=== PATIENT | male | born 1940 | race Caucasian/White ===

== ENCOUNTER → 2020-10-05 | Outpatient (CLI) | payer OTHER | LOC: LAB EV 16:20 → LAB SHORT 16:20 | DX: N39.0 Urinary tract infection, site not specified (principal) | CPT/HCPCS: 87077; 87086; 87186 ==

== ENCOUNTER 2023-03-19 18:42 | Emergency (ER) | payer OTHER ==
[~2023-03-19] VITALS: Ht 175.3 cm; Wt 70.3 kg
[2023-03-19 19:02] LABS: Hemoglobin 14.7 g/dL (13.5-17.5); Mean Corpuscular HGB 29.9 pg (26.0-34.0); Mean Corpuscular HGB Conc 34.2 g/dL (31.5-36.5); Mean Corpuscular Volume 87 fL (80-100); Mean Platelet Volume 10.8 fL (9.1-12.4); NRBC ABSOLUTE 0.02 K/mm3 (0.00-0.02); NRBC Auto 0.1 /100 WBC (0.0-0.2); Platelet Count 159 K/mm3 (150-400); RDW Standard Deviation 40.9 fL (35.1-46.3); Red Blood Cell Count 4.92 M/mm3 (4.30-5.90); White Blood Cell Count 15.61 K/mm3 (4.00-11.30)
[2023-03-19 19:23] LABS: Albumin, Blood 3.7 g/dL (3.4-5.0); Albumin/Globulin Ratio 1.2 (0.8-1.8); Bilirubin, Total 0.7 mg/dL (0.1-1.0); Bun/Creatinine Ratio 20.4 (12.0-20.0); Calcium, Blood 9.8 mg/dL (8.5-10.1); Creatinine, Blood 0.64 mg/dL (0.60-1.20); Globulin, Blood 3.2 g/dL (2.2-4.0); Potassium, Blood 4.4 mmol/L (3.5-5.5); Total Protein, Blood 6.9 g/dL (6.4-8.2)
[2023-03-19 19:51] LABS: BASOPHILS PERCENT MAN 0 % (0-2); EOSINOPHILS PERCENT MAN 0 % (0-6); LYMPHOCYTES ABSOLUTE MAN 12.48 K/mm3 (0.84-5.20); LYMPHOCYTES PERCENT MAN 80 % (21-46); MONOCYTES PERCENT MAN 0 % (4-13); NEUTROPHILS ABSOLUTE MAN 3.12 K/mm3 (1.96-9.15); SEG NEUTROPHILS PERCENT MAN 20 % (41-73); TOTAL CELLS COUNTED 100
[2023-03-19 20:30] LABS: Base Excess Venous 6.1 mmol/L; Bicarbonate Venous 28.4 mmol/L (24.0-30.0); PCO2 Venous 51.2 mmHg (38-42); pH Blood Venous 7.39 (7.34-7.37)
[2023-03-19 20:52] LABS: Source, Urine Clean Catch
[2023-03-19 20:55] LABS: Bilirubin, Urine Neg (Neg); Blood, Urine 1+ (Neg); Glucose Qualitative, Urine 4+ (Neg); Ketones, Urine 1+ (Neg); Leukocyte Esterase, Urine Neg (Neg); Nitrite, Urine Neg (Neg); Protein, Urine Neg (Neg); Urobilinogen, Urine NORM (Normal)
[2023-03-19 20:56] LABS: Appearance, Urine Clear (Clear); Color, Urine Yellow (P-Yellow)
[2023-03-19 21:05] LABS: Bacteria Not Seen /hpf; Red Blood Cells, Urine 0-2 /hpf (0-2); Squamous Epithelial Cells Rare /hpf (Few); White Blood Cells, Urine Not Seen /hpf (0-5)
[2023-03-19 22:00] VITALS: BP 123/97
[2023-03-19] MEDS ORDERED: METF500C PO (22:25)
[2023-03-20] MEDS ORDERED: METF500C PO (01:13)
[2023-03-20] MEDS ORDERED: LEVO750 PO (01:13)
[2023-03-20] MEDS ORDERED: GLIM2 PO (23:08)
[2023-03-20] MEDS ORDERED: TAMS.4ER PO (23:08)
== END 2023-03-19 22:37 | disposition home or self-care (01) ==
LOC: ER 18:42
PROVIDERS: Emergency Medicine; Student in an Organized Health Care Education/Training Program
DX: E11.65 Type 2 diabetes mellitus with hyperglycemia (principal); R06.89 Other abnormalities of breathing; Z88.0 Allergy status to penicillin; Z88.1 Allergy status to other antibiotic agents
CPT/HCPCS: 71046; 80053; 81001; 82803; 82947; 84443; 85025; 93005; 93010; 96360; 99285-25; J1815; J7030

== ENCOUNTER 2023-03-20 18:58 | Inpatient (IN) | payer OTHER ==
[~2023-03-20] VITALS: Ht 175.3 cm; Wt 70.3 kg
[~2023-03-20 18:58] MED LIST: LEVO750 PO; METF500C PO
[2023-03-20 19:53] LABS: Hematocrit 41.5 % (37.0-53.0); Mean Corpuscular HGB 30.1 pg (26.0-34.0); Mean Corpuscular HGB Conc 33.7 g/dL (31.5-36.5); Mean Corpuscular Volume 89 fL (80-100); Mean Platelet Volume 10.7 fL (9.1-12.4); Platelet Count 155 K/mm3 (150-400); RDW Coefficient Variation 13.2 % (11.7-14.2); RDW Standard Deviation 42.4 fL (35.1-46.3); Red Blood Cell Count 4.65 M/mm3 (4.30-5.90); White Blood Cell Count 20.26 K/mm3 (4.00-11.30)
[2023-03-20 20:04] LABS: Alanine Aminotransfer (ALT/SGP 22 U/L (12-78); Albumin, Blood 3.4 g/dL (3.4-5.0); Albumin/Globulin Ratio 1.1 (0.8-1.8); Alk Phos 90 U/L (50-136); Anion Gap 9 mmol/L (6-16); Aspartate Aminotrans (AST/SGOT 14 U/L (12-37); Bilirubin, Total 0.7 mg/dL (0.1-1.0); Blood Urea Nitrogen 13 mg/dL (8-24); Bun/Creatinine Ratio 21.5 (12.0-20.0); CO2, Blood 26 mmol/L (21-32); Calcium, Blood 8.4 mg/dL (8.5-10.1); Chloride, Blood 102 mmol/L (98-108); Ethanol (Alcohol), Blood, Med <3 mg/dL; Globulin, Blood 3.2 g/dL (2.2-4.0); Glomerular Filtration Rate 97 (60-); Glucose, Blood 302 mg/dL (70-99); Potassium, Blood 4.3 mmol/L (3.5-5.5); Sodium, Blood 137 mmol/L (136-145); Total Protein, Blood 6.6 g/dL (6.4-8.2)
[2023-03-20 20:50] LABS: BAND PERCENT MAN 1 % (0-8); BASOPHILS PERCENT MAN 0 % (0-2); EOSINOPHILS PERCENT MAN 0 % (0-6); LYMPHOCYTES ABSOLUTE MAN 15.39 K/mm3 (0.84-5.20); LYMPHOCYTES PERCENT MAN 76 % (21-46); MONOCYTES PERCENT MAN 0 % (4-13); NEUTROPHILS ABSOLUTE MAN 4.86 K/mm3 (1.96-9.15); SEG NEUTROPHILS PERCENT MAN 23 % (41-73); TOTAL CELLS COUNTED 100
[2023-03-20 21:04] LABS: Base Excess Venous 2.6 mmol/L; Bicarbonate Venous 25.4 mmol/L (24.0-30.0); PCO2 Venous 45.9 mmHg (38-42); PO2 Venous 33.5 mmHg (38-42); pH Blood Venous 7.39 (7.34-7.37)
[2023-03-20 21:50] LABS: U Amphetamine Screen Not Detected; U Barbituate Screen Not Detected; U Benzodiazapine Screen Not Detected; U Buprenorphine Screen Not Detected; U Cannabinoids Screen Not Detected; U Cocaine Screen Not Detected; U Methadone Screen Not Detected; U Methamphetamine Screen Not Detected; U Opiates Screen Not Detected; U Oxycodone Screen Not Detected; U Phencyclidine Screen Not Detected; U Propoxyphene Screen Not Detected
[2023-03-20] MEDS ORDERED: TAMS.4ER PO (23:08)
[2023-03-20] MEDS ORDERED: GLIM2 PO (23:08)
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
--- NOTE | 2023-03-21 02:06 | NUR ---
HEAD CT DONE EARLIER, WAITING FOR RESULTS. GAS BEEN RSTING QUIETLY WITHOUT NOTED ACUTE DISTRESS. CALL LIGHT IN REACH
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
[2023-03-21 04:53] VITALS: BP 99/61
[2023-03-21 06:23] LABS: BASOPHILS ABSOLUTE AUTO 0.04 K/mm3 (0.00-0.23); BASOPHILS PERCENT AUTO 0 % (0-2); EOSINOPHILS ABSOLUTE AUTO 0.01 K/mm3 (0.00-0.68); EOSINOPHILS PERCENT AUTO 0 % (0-6); Hematocrit 38.5 % (37.0-53.0); Hemoglobin 12.9 g/dL (13.5-17.5); IMMATURE GRAN ABSOLUTE AUTO 0.05 K/mm3 (0.00-0.10); IMMATURE GRAN PERCENT AUTO 0 % (0-1); LYMPHOCYTES ABSOLUTE AUTO 13.34 K/mm3 (0.84-5.20); LYMPHOCYTES PERCENT AUTO 69 % (21-46); MONOCYTES ABSOLUTE AUTO 0.31 K/mm3 (0.16-1.47); MONOCYTES PERCENT AUTO 2 % (4-13); Mean Corpuscular HGB Conc 33.5 g/dL (31.5-36.5); Mean Corpuscular Volume 90 fL (80-100); Mean Platelet Volume 11.2 fL (9.1-12.4); NEUTROPHILS ABSOLUTE AUTO 5.63 K/mm3 (1.96-9.15); NEUTROPHILS PERCENT AUTO 29 % (41-73); NRBC ABSOLUTE 0.03 K/mm3 (0.00-0.02); NRBC Auto 0.2 /100 WBC (0.0-0.2); Platelet Count 153 K/mm3 (150-400); RDW Coefficient Variation 13.2 % (11.7-14.2); RDW Standard Deviation 42.6 fL (35.1-46.3); White Blood Cell Count 19.38 K/mm3 (4.00-11.30)
[2023-03-21 06:47] LABS: Calcium, Blood 8.2 mg/dL (8.5-10.1); Creatinine, Blood 0.65 mg/dL (0.60-1.20); Potassium, Blood 3.8 mmol/L (3.5-5.5)
[2023-03-21 08:10] VITALS: BP 102/65
[2023-03-21 16:27] VITALS: BP 115/82
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
[2023-03-21 19:34] VITALS: BP 108/72
--- NOTE | 2023-03-21 22:46 | NUR ---
PATIENT STATING "THERE ARE BLUE, GREEN AND ORANGE LIGHTS". "I NEED TO GET OUT OF HERE, I DON'T TRUST YOU GUYS." PATIENT ALSO STATED HE WAS GOING TO TAKE HIS OWN PILLS. RN CHECKED PATIENT BAG AND NO PILLS WERE FOUND. PATIENT WALKED AROUND THE ROOM LOOKING FOR THE SOURCE OF THE LIGHTS. PATIENT STATED HE WAS GOING TO GO TO SLEEP. BED ALARM IN PLACE.
[2023-03-22 02:31] VITALS: BP 129/75
[2023-03-22 04:52] LABS: Hematocrit 38.8 % (37.0-53.0); Mean Corpuscular HGB 29.6 pg (26.0-34.0); Mean Corpuscular HGB Conc 33.5 g/dL (31.5-36.5); Mean Corpuscular Volume 88 fL (80-100); NRBC ABSOLUTE 0.06 K/mm3 (0.00-0.02); NRBC Auto 0.3 /100 WBC (0.0-0.2); Platelet Count 138 K/mm3 (150-400); RDW Coefficient Variation 12.8 % (11.7-14.2); RDW Standard Deviation 41.6 fL (35.1-46.3); Red Blood Cell Count 4.39 M/mm3 (4.30-5.90); White Blood Cell Count 18.97 K/mm3 (4.00-11.30)
--- NOTE | 2023-03-22 06:57 | NUR ---
NOC SHIFT SUMMARY: PT ALERT X 4 AT BEGINNING OF SHIFT. PATIENT HAD AN EPISODE LAST NIGHT WITH INCREASED CONFUSION. NO FURTHER ISSUES. BED ALARM IN PLACE. VERY PLEASANT.
[2023-03-22 07:09] LABS: BASOPHILS PERCENT MAN 0 % (0-2); EOSINOPHILS PERCENT MAN 0 % (0-6); LYMPHOCYTES % ATYPICAL MANUAL 1 % (0-0); LYMPHOCYTES ABSOLUTE MAN 15.36 K/mm3 (0.84-5.20); LYMPHOCYTES PERCENT MAN 80 % (21-46); MONOCYTES PERCENT MAN 0 % (4-13); SEG NEUTROPHILS PERCENT MAN 19 % (41-73); TOTAL CELLS COUNTED 100
[2023-03-22 07:58] VITALS: BP 130/70
[2023-03-22 15:57] VITALS: BP 110/82
--- NOTE | 2023-03-22 19:43 | NUR ---
SHIFT SUMMARY PT A&OX2-3. PT REPORTS THAT HE KNOWS HE IS CONFUSED AND FORGETFUL. FAMILY AND FRIENDS ALSO REPORT THAT PT IS NORMALLY A&OX4 AND BASELINE. BG ELEVATED TODAY AND DR. PUENTES NOTIFIED. NO NEW ORDERS GIVEN. PT WORKED WITH PHYSCIAL THERAPY AND OT TODAY AND TOLERATED WELL. NO C/O PAIN. VSS. BED IN LOWEST POSITION AND CALL LIGHT IN REACH.
[2023-03-22 20:39] VITALS: BP 132/76
--- NOTE | 2023-03-23 04:52 | NUR ---
NOC SHIFT SUMMARY: ALERT TO SELF ONLY LAST NIGHT. NO C/O PAIN. BG 261 LAST NIGHT. A1C 12.3%.
[2023-03-23 04:59] LABS: Hematocrit 39.7 % (37.0-53.0); Hemoglobin 13.6 g/dL (13.5-17.5); Mean Corpuscular HGB Conc 34.3 g/dL (31.5-36.5); Mean Corpuscular Volume 88 fL (80-100); Mean Platelet Volume 10.5 fL (9.1-12.4); NRBC ABSOLUTE 0.04 K/mm3 (0.00-0.02); NRBC Auto 0.2 /100 WBC (0.0-0.2); Platelet Count 128 K/mm3 (150-400); RDW Coefficient Variation 12.9 % (11.7-14.2); RDW Standard Deviation 40.9 fL (35.1-46.3); Red Blood Cell Count 4.53 M/mm3 (4.30-5.90); White Blood Cell Count 18.94 K/mm3 (4.00-11.30)
[2023-03-23 06:02] LABS: Anion Gap 6 mmol/L (6-16); Blood Urea Nitrogen 13 mg/dL (8-24); Bun/Creatinine Ratio 19.4 (12.0-20.0); CO2, Blood 27 mmol/L (21-32); Calcium, Blood 8.2 mg/dL (8.5-10.1); Chloride, Blood 102 mmol/L (98-108); Creatinine, Blood 0.67 mg/dL (0.60-1.20); Glomerular Filtration Rate 94 (60-); Glucose, Blood 248 mg/dL (70-99); Phosphorus, Blood 2.2 mg/dL (2.5-4.9); Potassium, Blood 3.8 mmol/L (3.5-5.5); Sodium, Blood 135 mmol/L (136-145)
[2023-03-23 07:40] VITALS: BP 151/77
[2023-03-23 16:02] VITALS: BP 112/70
--- NOTE | 2023-03-23 19:16 | NUR ---
SHIFT SUMMARY PT ALERT ONLY TO SELF. PT APPEARED MORE CONFUSED TODAY. PT LOSES TAIN OF THOUGHT IN MIDDLE OF SENTANCE AND HAS TROUBLE AT TIMES FORMING A COMPLETE SENTANCE. THIS NURSE ATTMPTED TO REACH PT'S PCP, TODD SAMPSON, AT WITHOUT SUCCESS. A REQUEST FOR RELEASE OF MEDICAL RECORDS WAS FAXED TO [facility]. SPOKE WITH PT'S SON AND GAVE UPDATE. DR PUENTES REQUESTS MEDIAL RECORDS FROM SALES SUPPORT REP, IF POSSIBLE BUT SON STATED HE WAS UNSURE IF FATHER HAD A SALES SUPPORT REP. PT IS COOPERATIVE OF CARE. NO C/O PAIN. VSS. CONTINUING IV ABX. PT WORKED WITH PHYSICAL THERAPY AND OT TODAY. BED ALARM ON. REPORT GIVEN OT ONCOMING NURSE. BED IN LOWEST POSITION AND CALL LIGHT IN REACH.
[2023-03-23 19:46] VITALS: BP 118/70
[2023-03-24 02:45] VITALS: BP 115/80
--- NOTE | 2023-03-24 04:41 | NUR ---
NOC SHIFT SUMMARY: PATIENT CONTINUES TO BE CONFUSED. HE IS ALERT AND ORINETED X 1-2. FAMILY STATES THIS IS NEW FOR HIM. PATIENT IS IMPULSIVE. BED ALARM IN PLACE. CONTINUES ON NORMAL SALINE INFUSION. PATIENT USES THE URINAL APPROPRIATELY. UP WITH SBA TO 1 ASSIST. CALL LIGHT WITHIN REACH. BED IN LOW POSITION.
[2023-03-24 07:26] VITALS: BP 128/68
[2023-03-24 08:54] LABS: Albumin, Blood 3.1 g/dL (3.4-5.0); Anion Gap 6 mmol/L (6-16); Blood Urea Nitrogen 11 mg/dL (8-24); Bun/Creatinine Ratio 17.9 (12.0-20.0); CO2, Blood 27 mmol/L (21-32); Chloride, Blood 103 mmol/L (98-108); Creatinine, Blood 0.62 mg/dL (0.60-1.20); Glomerular Filtration Rate 96 (60-); Glucose, Blood 221 mg/dL (70-99); Phosphorus, Blood 2.2 mg/dL (2.5-4.9); Potassium, Blood 3.6 mmol/L (3.5-5.5); Sodium, Blood 136 mmol/L (136-145)
[2023-03-24 11:59] LABS: Hematocrit 41.9 % (37.0-53.0); Hemoglobin 14.5 g/dL (13.5-17.5); Mean Corpuscular HGB Conc 34.6 g/dL (31.5-36.5); Mean Corpuscular Volume 87 fL (80-100); Mean Platelet Volume 11.1 fL (9.1-12.4); Platelet Count 150 K/mm3 (150-400); RDW Coefficient Variation 12.9 % (11.7-14.2); Red Blood Cell Count 4.83 M/mm3 (4.30-5.90); White Blood Cell Count 29.45 K/mm3 (4.00-11.30)
[2023-03-24 12:09] LABS: International Normalized Ratio 1.04; Prothrombin Time Results 10.9 Sec (9.7-11.5)
[2023-03-24 15:18] VITALS: BP 154/72
--- NOTE | 2023-03-24 18:19 | NUR ---
LATE ENTRY/TRANSFER FROM [phone] TO [phone]. RECEIVED REPORT FROM PANTERA POLLOCK. RECEIVED PT FROM CT SCAN AFTER PT HAD HEAD & NECK CTA. PT IS CONFUSED AND NOT EASILY REDIRECTED, IS UNABLE TO DISCERN HIS ENVIROMENT ON THE RIGHT SIDE & DOESN'T SEEM TO RECOGNIZE HIS DEFECITS. ATTEMPTS TO GET OOB ON HIS OWN, IS WOBBILY AND UNABLE TO MAINTAIN BALANCE. PLACED ON TELE. PT MAY REQUIRE A SAFETY VEST TO PREVENT FALLS, BED ALARM IS ON, CALL LIGHT WITHIN REACH
--- NOTE | 2023-03-24 18:19 | NUR ---
DAYSHIFT SUMMARY Patient alert & oriented x2, oriented to self. Not able to answer questions appropriately. PT & OT eval & treat, patient had difficult following directions. Unsteady gait, appears to have difficulty with vision in right eye, unaware of enviroment. Unsteady gait, but equal strength in BUE/BLE. Instructed patient to use walker for transfers, patient declined to use FWW. Patient impulsive, getting up w/o help. Staff attempted to redirect, patient became agitated telling staff to leave him alone, patient pushed EMBOSSING MACHINE TENDER away when trying to help with the urinal. When patient got up out of bed, he was unaware of enviroment, walking into equipment, the corners of the room, unware of surroundings. Attempted to redirect. Patient appeared to become more agitated as the day progressed. MRI done, results showed acute infarct, MD ordered telemetry and CAT scan, results pending. Patient changed rooms, and moved to special care unit. Handoff report given to RN.
[2023-03-24 20:15] VITALS: BP 135/71
--- NOTE | 2023-03-25 03:28 | NUR ---
A/O AT BEDSIDE, 1999 PT STARTED PREP FOR COLONOSCOPY, 2039 ASISTED PT TO BATHROOM AND WARNED PT TO CALL IF FEELING DIZZY OR JUST NOT WELL, PT WAS ON TOILET FOR ABOUT 15 MIN BEFORE HUDBAND CAME OUT VERY SCARED AND CALLED ME, PT STATED THAT SHE FELT VERY WEAK AND NEEDED HELP. I ATTEMPTED TO GET PT BACK TO BED BUT PT SEEMED TO HAVE A VAGAL RESPONSE AND PASSOUT LOOSING FULL CONSCIENCENESS FOR ABOUT 5 SEC BEFORE I COULD WAKE. RAPID RESPONCE WAS CALL AND TEAM PROMPTLY SHOWED UP. PT WAS ASSISTED BACK TO BED FEEL COLD AND PT WAS PALE. VSS WERE STALE BLOOD SUGAR WAS WNL AND RECENT BLOOD DRAW SHOW PT H/H WAS INCREASING. NO BLOOD WAS NOTED IN STOOL. WILL CONT TO MONITOR PT.
--- NOTE | 2023-03-25 03:34 | NUR ---
ASSISTED PT TO BSC BUT FIRST TOOK ORTHOSTAIC BLOOD PRESSURES WITH LITTLE TO KNOW CHANGE. PT STATED SHE FELT MUCH BETTER. PREP WAS STOPPED BECAUSE PT NEARLY FINISHED THE 2000 ML THAT WAS ORDERED.
[2023-03-25 03:57] VITALS: BP 128/69
--- NOTE | 2023-03-25 05:46 | NUR ---
REPORT RECEIVED VERIFIED PT A/O TO SELF VERY PLEASENT BUT VERY CONFUSED, CONSTANTLY NEEDING TO USE THE BATH ROOM SO PT IS CONSTANTLY TRYING TO GET OUT OF RESTRAINS. PT HAS FIGURED OUT TO UNTIE KEITH AND EVEN GET OUT OF KEITH. REORIENTING PT IS EASY BUT IT ONLY LAST FOR A MOMENT. PT SO FAR IS STEADY ON FEET AND HAS ONLY NEEDEDMINIMAL ASSIST TO GET TO THE BATHROOM.
[2023-03-25 06:30] LABS: Hematocrit 40.1 % (37.0-53.0); Hemoglobin 13.8 g/dL (13.5-17.5); Mean Corpuscular HGB Conc 34.4 g/dL (31.5-36.5); Mean Corpuscular Volume 87 fL (80-100); Mean Platelet Volume 10.5 fL (9.1-12.4); NRBC ABSOLUTE 0.04 K/mm3 (0.00-0.02); NRBC Auto 0.2 /100 WBC (0.0-0.2); Platelet Count 143 K/mm3 (150-400); RDW Coefficient Variation 13.2 % (11.7-14.2); RDW Standard Deviation 41.1 fL (35.1-46.3); White Blood Cell Count 22.66 K/mm3 (4.00-11.30)
[2023-03-25 07:17] VITALS: BP 113/61
[2023-03-25 07:48] LABS: Albumin, Blood 3.1 g/dL (3.4-5.0); Anion Gap 8 mmol/L (6-16); Blood Urea Nitrogen 10 mg/dL (8-24); Bun/Creatinine Ratio 17.8 (12.0-20.0); CHOL/HDL RATIO 3.7; CO2, Blood 27 mmol/L (21-32); Calcium, Blood 8.3 mg/dL (8.5-10.1); Chloride, Blood 102 mmol/L (98-108); Cholesterol 176 mg/dL (50-200); Creatinine, Blood 0.56 mg/dL (0.60-1.20); Glomerular Filtration Rate 99 (60-); Glucose, Blood 141 mg/dL (70-99); HDL Cholesterol 48 mg/dL (>39); LDL/HDL RATIO 2.4; Low Density Lipoprotein Chol 116 mg/dL (0-110); Phosphorus, Blood 2.9 mg/dL (2.5-4.9); Potassium, Blood 3.2 mmol/L (3.5-5.5); Sodium, Blood 137 mmol/L (136-145); Triglycerides 60 mg/dL (30-160); Very Low Density Lipoprot Chol 12 mg/dL (6-32)
[2023-03-25 07:50] LABS: BASOPHILS PERCENT MAN 0 % (0-2); EOSINOPHILS PERCENT MAN 0 % (0-6); LYMPHOCYTES ABSOLUTE MAN 19.94 K/mm3 (0.84-5.20); LYMPHOCYTES PERCENT MAN 88 % (21-46); MONOCYTES ABSOLUTE MAN 0.45 K/mm3 (0.16-1.47); MONOCYTES PERCENT MAN 2 % (4-13); NEUTROPHILS ABSOLUTE MAN 2.26 K/mm3 (1.96-9.15); SEG NEUTROPHILS PERCENT MAN 10 % (41-73); TOTAL CELLS COUNTED 100
[2023-03-25 15:32] VITALS: BP 118/79
[2023-03-25 22:02] VITALS: BP 150/101
--- NOTE | 2023-03-26 04:06 | NUR ---
AN RECEIVED VERIFIED, PT VERY CONFUSED WHEN I ARRIVED COULDNT ANSWER VERY MANY QUESTIONS AND WOULD LOOSE TRACK OF TASKS WAS VERY DIFFICULT TO ORIENT OR DIRECT. KEITH RESTRAINS WERE ORDERED AND PLACED, PT WAS VERY AGITATED AND DR FIGUEROA NEUROLOGIST CAME IN TO ASSIST PT. PT PROMPTLY FELL ASLEEP. 2200 PT AWOKE VERY ALERT AND EASILY REORIENTED WAS EASILY DIRECTED AND NOW PT CAN TELL ME HE IS IN THE HOSPITAL. PT AMBULATED WELL SEVERAL TIMES TO BATHROOM AND CAN NOW GET OUT OF KEITH AT WILL. WILL CONT TO MONITOR .
[2023-03-26 08:04] VITALS: BP 133/70
[2023-03-26 14:04] VITALS: BP 120/78
[2023-03-26 19:16] VITALS: BP 97/62
--- NOTE | 2023-03-26 19:27 | NUR ---
SHIFT SUMMARY; PATIENT PLEASANTLY CONFUSED THROUGHOUT THE DAY. SHORT TERM MEMORY LAPSES. HE ASKS REPETITIVE QUESTIONS. ORDER RECEIVED FOR SEROQUEL BID PRN AND ONCE A DAY. FOR AGITATION. ALSO ARICEPT 5MG QHS. PATIENT WORKED WITH PHYSICAL THERAPY. DID OK AMBULATING HOWEVER NEEDS REMINDERS TO USE WALKER AND TO SLOW DOWN.
--- NOTE | 2023-03-27 04:25 | NUR ---
SHIFT SUMMARY ADMITTED FOR PNEUMONIA/AMS. FULL CODE. FOUND TO HAVE A POSSIBLY SUBACUTE LEFT CVA. PLAN IS FOR PLACEMENT. TELEMETRY: NSR @ 77 BPM. ACHS CBG'S. SARAH @ . HE IS ON RA. ADA DIET. THIS SHIFT WAS UNREMARKABLE. THE PATIENT WAS REDIRECTABLE AND COOPERATIVE WITH CARE. HE USED A URINAL AT BEDSIDE THIS SHIFT. A&O X 1-2.
[2023-03-27 07:45] VITALS: BP 105/65
[2023-03-27 16:11] VITALS: BP 121/81
--- NOTE | 2023-03-27 18:37 | NUR ---
SHIFT SUMMARY NO ACUTE CHANGES THIS SHIFT. PT STATED THAT HE FELT WELL TODAY AND IS ANTICIPATING GOING HOME. ALERT AND ORIENTED X2 CONFUSED BUT PLEASANT. BLOOD SUGARS HAVE BEEN IN 100S. TREATED PER EMAR. BED IS IN THE LOWEST POSITION WITH BED ALARM ON AND CALL LIGHT IN REACH. ABLE TO MAKE NEEDS KNOW.
[2023-03-27 20:55] VITALS: BP 118/72
--- NOTE | 2023-03-28 04:36 | NUR ---
SHIFT SUMMARY A/OX3. ROOM AIR. FORGETFUL. BED ALARM ON. SHIFT UNREMARKABLE. SLEPT MAJORITY OF SHIFT. INSULIN GLARGINE HELD PER CLINICAL JUDGEMENT. ABLE TO MAKE NEEDS KNOWN. CALL LIGHT IN REACH. BED LOCKED IN LOW POSITION
[2023-03-28 06:18] LABS: Hematocrit 43.5 % (37.0-53.0); Hemoglobin 14.5 g/dL (13.5-17.5); Mean Corpuscular HGB 29.9 pg (26.0-34.0); Mean Corpuscular HGB Conc 33.3 g/dL (31.5-36.5); Mean Corpuscular Volume 90 fL (80-100); Mean Platelet Volume 10.1 fL (9.1-12.4); Platelet Count 127 K/mm3 (150-400); RDW Standard Deviation 45.1 fL (35.1-46.3); Red Blood Cell Count 4.85 M/mm3 (4.30-5.90); White Blood Cell Count 25.08 K/mm3 (4.00-11.30)
[2023-03-28 06:25] VITALS: BP 112/70
[2023-03-28 06:50] LABS: Bun/Creatinine Ratio 24.7 (12.0-20.0); Calcium, Blood 8.3 mg/dL (8.5-10.1); Creatinine, Blood 0.69 mg/dL (0.60-1.20); Potassium, Blood 3.7 mmol/L (3.5-5.5)
[2023-03-28 07:15] VITALS: BP 104/72
[2023-03-28 15:17] VITALS: BP 161/95
[2023-03-28 19:13] VITALS: BP 150/56
--- NOTE | 2023-03-28 19:41 | NUR ---
SHIFT SUMMARY NO ACUTE CHANGES THIS SHIFT. SCHEDULED INSULIN D/C AND PT PO HOME MEDICATION RESTARTED. CBG WERE RUNNING LOW YESTERDAY. TODAY CBG IN 200S. MD AWARE. PT ALERT AND ORIENTED TO SELF AND PLACE. CALM AND COOPERATIVE. TEARFUL ABOUT SITUATION. PROVIDED THERAPUTIC CONVERSATION AND ENCOURAGEMENT. HE IS FORGETFUL AND BECOMES UPSET WITH HIMSELF. FAMILY VISITED WITH PT THROUGHOUT THE SHIFT. BED IS IN THE LOWEST POSITION WITH BED ALARM ON AND CALL LIGHT IN REACH. PT IS ABLE TO MAKE NEEDS KNOWN BUT FORGETS TO CALL FOR HELP. IMPULSIVE.
[2023-03-29 04:19] VITALS: BP 102/69
--- NOTE | 2023-03-29 06:43 | NUR ---
SHIFT SUMMARY A/OX3. FORGETFUL. CAN GET FRUSTRATED WITH HIMSELF DUE TO FORGETFULNESS AND INABILITY TO SAY WHAT HE HAS ON HIS MIND. ROOM AIR. CONTINENT B/B. STAND BY TO BATHROOM. BED ALARM ON DUE TO IMPULSIVENESS. HUMALONG KWIK PEN AND INSULIN GLARGINE WAS RESTARTED LAST NIGHT. PATIENT WAS BARELY RESTARTED ON METFORMIN 03/28. SHIFT OTHERWISE UNREMARKABLE. SLEPT MAJORITY APART FROM US WAKING HIM FOR PT CARE. ABLE TO MAKE NEEDS KNOWN. CALL LIGHT IN REACH. BED LOCKED IN LOW POSITION.
[2023-03-29 07:48] VITALS: BP 100/67
[2023-03-29 15:45] VITALS: BP 103/61
--- NOTE | 2023-03-29 16:53 | NUR ---
SHIFT SUMMARY PT VERY CONFUSED AND FORGETFUL. EAILY REORIENTED, HOWEVER FORGET IMMEDIATELY. PT REMINDED SEVERAL TIMES WHERE HE IS AND WHY HE IS IN THE HOSPITAL. PT VERY PLEASANT & COOPERATIVE WITH CARE. AM LISINOPRIL HELD THIS AM. WORKED WITH PHYSICAL AND OCCUPATIONAL THERAPY. SBA AMBULATION TO THE BATHROOM AND HALLWAYS WITH GAITBELT. PT QUITE STEADY ON FEET, BUT IMPULSIVE. CHAIR/BED ALARMS IN USE. NO OTHER ACUTE CHANGES IN ASSESSMENT AT THIS TIME. VS REVIEWED. CALL LIGHT IN REACH. DENIES OTHER NEEDS AT THIS TIME. PLACEMENT PENDING.
[2023-03-29 19:19] VITALS: BP 93/58
[2023-03-30 06:40] LABS: Hematocrit 41.3 % (37.0-53.0); Hemoglobin 13.4 g/dL (13.5-17.5); Mean Corpuscular HGB 29.8 pg (26.0-34.0); Mean Corpuscular HGB Conc 32.4 g/dL (31.5-36.5); Mean Corpuscular Volume 92 fL (80-100); Mean Platelet Volume 10.3 fL (9.1-12.4); Platelet Count 107 K/mm3 (150-400); RDW Coefficient Variation 14.1 % (11.7-14.2); RDW Standard Deviation 47.2 fL (35.1-46.3); Red Blood Cell Count 4.49 M/mm3 (4.30-5.90); White Blood Cell Count 23.24 K/mm3 (4.00-11.30)
[2023-03-30 06:43] VITALS: BP 109/64
--- NOTE | 2023-03-30 06:53 | NUR ---
Shift Summary Pt AOx2, he is mentally coherent but very forgetful. He is 1 SBA to the bathroom and steady on his feet tonight. He does not remember to call for help when getting up, the bed alarm gives us enough time to get to him when he first stands out of bed. No acute changes.
[2023-03-30 06:57] LABS: Bun/Creatinine Ratio 23.4 (12.0-20.0); Calcium, Blood 8.4 mg/dL (8.5-10.1); Creatinine, Blood 0.73 mg/dL (0.60-1.20)
[2023-03-30 07:27] LABS: BASOPHILS PERCENT MAN 0 % (0-2); EOSINOPHILS ABSOLUTE MAN 0.46 K/mm3 (0.00-0.68); EOSINOPHILS PERCENT MAN 2 % (0-6); LYMPHOCYTES ABSOLUTE MAN 20.21 K/mm3 (0.84-5.20); LYMPHOCYTES PERCENT MAN 87 % (21-46); MONOCYTES PERCENT MAN 0 % (4-13); NEUTROPHILS ABSOLUTE MAN 2.55 K/mm3 (1.96-9.15); SEG NEUTROPHILS PERCENT MAN 11 % (41-73); TOTAL CELLS COUNTED 100
[2023-03-30 08:32] VITALS: BP 111/71
[2023-03-30 16:19] VITALS: BP 90/55
--- NOTE | 2023-03-30 18:08 | NUR ---
SHIFT SUMMARY PT WORKING WITH PHYSICAL THERAPY TODAY. AMBULATING HALLWAYS WITH SBA. PT EXTREMELY FORGETFUL. TELE DCED TODAY. NO BM DOCUMENTED SINCE ADMISSION. PT STATES HE DOES NOT HAVE ANY ABD PAIN AND IS PASSING GAS. THIS WAS RELAYED TO DR. GALE AND BOWEL CARE HAS BEEN ORDERED. NO OTHER ACUTE CHANGES IN ASSESSMENT AT THIS TIME. VS REVIEWED. CALL LIGHT IN REACH. DENIES OTHER NEEDS AT THIS TIME.
[2023-03-30 19:43] VITALS: BP 103/60
[2023-03-31 03:40] VITALS: BP 111/68
--- NOTE | 2023-03-31 06:35 | NUR ---
Shift Summary No events, pt slept well t/o most of the night. When ambulating pt is steady and strong on his feet. Still doing SBA and bed alarms as pt is quick to hop out of bed without calling. Pt has good mentation but is very forgetful.
[2023-03-31 07:18] VITALS: BP 109/96
[2023-03-31 16:35] VITALS: BP 111/78
--- NOTE | 2023-03-31 17:43 | NUR ---
SHIFT SUMMARY- PT ALERT AND ORIENTED, 1PA WITH TRANSFERS. PT IS ABLE TO ANSWER QUESTIONS APPROPRIATELY, BUT HAS NO SHORT TERM MEMORY. HE FORGETS TO CALL FOR STAFF ASSISTANCE, BED AND CHAIR ALARMS ARE BEING USED FOR PT SAFETY. PT HAD A SHOWER THIS EVENING, HE JUST TOLD STAFF HE HAD A GOOD SWIM AND IS READY FOR DINNER. PT IS VERY PLEASENT. PT CURRENTLY SITTING UP IN BED, CALL LIGHT IN REACH, TRAYS JUST ARRIVED, HE WILL LIKELY WANT TO SIT IN THE CHAIR FOR DINNER. STAFF WILL ASSIST. FREQUENT REMINDERS FOR SAFETY. NO CURRENT S&S OF DISTRESS NOTED.
[2023-03-31 21:42] VITALS: BP 111/69
--- NOTE | 2023-03-31 21:43 | NUR ---
VITALS/CHEM BG NOT TRANSMITTING I DID MANUALLY ENTER VITALS THE MONITOR'S VITALS DO NOT SEEM TO BE TRANSMITTING INTO [employer]. CHEM BG HAS NOT TRANSMITTED YET EITHER BUT I DID WITNESS THE GLUCOSE LEVEL TO BE 178, SO I DID ADMINISTER GLARGINE SCHEDULED.
--- NOTE | 2023-04-01 04:31 | NUR ---
SHIFT SUMMARY ADMITTED FOR ADMITTED FOR PNEUMONIA/AMS. 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 FULL CODE. PLAN FOR PLACEMENT. ANTIB RX ARE SCHEDULED. HE DOES HAVE SHORT TERM MEMORY LOSS. STANDBY ASSIST W/BRP. ADA DIET. ACHS CBG'S - LOW SS. PT/OT THERAPIES ASSISTING WITH CARE. RIGHT SIDED VISUAL DEFICITS NOTED. HE IS ON RA. NO NEW CONCERNS. HE DID SLEEP WELL THIS SHIFT
[2023-04-01 05:54] VITALS: BP 110/68
[2023-04-01 07:32] VITALS: BP 93/57
[2023-04-01 16:00] VITALS: BP 93/60
[2023-04-01 19:29] VITALS: BP 95/62
--- NOTE | 2023-04-01 19:44 | NUR ---
Shift summary- Pt has had no acute change t/o the day. Bg was 73 this morning, spoke to dr Gaytan, lantus dose was changed. Pt recieved 10 units today and 15 units tonight. bedside report completed with night rn. Pt was in the bathroom and put himself into bed at the time of report. No s&s of distress noted.
[2023-04-01 20:13] LABS: Hematocrit 41.3 % (37.0-53.0); Hemoglobin 13.7 g/dL (13.5-17.5); Mean Corpuscular HGB Conc 33.2 g/dL (31.5-36.5); Mean Corpuscular Volume 90 fL (80-100); Mean Platelet Volume 10.8 fL (9.1-12.4); Platelet Count 110 K/mm3 (150-400); RDW Coefficient Variation 14.1 % (11.7-14.2); RDW Standard Deviation 46.5 fL (35.1-46.3); Red Blood Cell Count 4.57 M/mm3 (4.30-5.90); White Blood Cell Count 23.06 K/mm3 (4.00-11.30)
[2023-04-01 20:30] LABS: Bun/Creatinine Ratio 24.2 (12.0-20.0); Calcium, Blood 8.7 mg/dL (8.5-10.1); Creatinine, Blood 0.87 mg/dL (0.60-1.20); Potassium, Blood 4.1 mmol/L (3.5-5.5)
[2023-04-01 21:11] LABS: BAND PERCENT MAN 1 % (0-8); BASOPHILS PERCENT MAN 0 % (0-2); EOSINOPHILS ABSOLUTE MAN 0.23 K/mm3 (0.00-0.68); EOSINOPHILS PERCENT MAN 1 % (0-6); LYMPHOCYTES % ATYPICAL MANUAL 2 % (0-0); LYMPHOCYTES ABSOLUTE MAN 18.67 K/mm3 (0.84-5.20); LYMPHOCYTES PERCENT MAN 79 % (21-46); MONOCYTES ABSOLUTE MAN 0.46 K/mm3 (0.16-1.47); MONOCYTES PERCENT MAN 2 % (4-13); NEUTROPHILS ABSOLUTE MAN 3.68 K/mm3 (1.96-9.15); SEG NEUTROPHILS PERCENT MAN 15 % (41-73); TOTAL CELLS COUNTED 100
[2023-04-02] VITALS (7 sets, daily range): BP systolic 78–103; BP diastolic 56–60
--- NOTE | 2023-04-02 04:44 | NUR ---
SHIFT SUMMARY ADMITTED FOR RLL PNEUMONIA/AMS. FULL CODE. SUBACUTE LEFT CVA. PATIENT'S SON IS ATTEMPTING TO SECURE TIMBER [employer] CARE INSURANCE/MEDICAID. PATIENT HAS SHORT TERM MEMORY LOSS. HE LIVES ALONE. ON RA. ADA DIET. INSULIN IS SCHEDULED. STANDBY ASSIST W/BRP. RIGHT SIDED VISUAL DEFICITS. HE DOES HAVE CLL AND ELEVATED WBC COUNTS. NO NEW CONCERNS THIS SHIFT
[2023-04-02 05:46] LABS: Hematocrit 40.7 % (37.0-53.0); Hemoglobin 13.5 g/dL (13.5-17.5); Mean Corpuscular HGB 30.3 pg (26.0-34.0); Mean Corpuscular HGB Conc 33.2 g/dL (31.5-36.5); Mean Corpuscular Volume 91 fL (80-100); Mean Platelet Volume 10.9 fL (9.1-12.4); Platelet Count 107 K/mm3 (150-400); RDW Coefficient Variation 14.2 % (11.7-14.2); RDW Standard Deviation 47.6 fL (35.1-46.3); Red Blood Cell Count 4.46 M/mm3 (4.30-5.90)
[2023-04-02 06:09] LABS: Bun/Creatinine Ratio 29.9 (12.0-20.0); Calcium, Blood 8.6 mg/dL (8.5-10.1); Creatinine, Blood 0.8 mg/dL (0.60-1.20)
[2023-04-02 07:20] LABS: BASOPHILS PERCENT MAN 0 % (0-2); EOSINOPHILS ABSOLUTE MAN 0.24 K/mm3 (0.00-0.68); EOSINOPHILS PERCENT MAN 1 % (0-6); LYMPHOCYTES ABSOLUTE MAN 20.17 K/mm3 (0.84-5.20); LYMPHOCYTES PERCENT MAN 82 % (21-46); MONOCYTES ABSOLUTE MAN 0.24 K/mm3 (0.16-1.47); MONOCYTES PERCENT MAN 1 % (4-13); NEUTROPHILS ABSOLUTE MAN 3.93 K/mm3 (1.96-9.15); SEG NEUTROPHILS PERCENT MAN 16 % (41-73); TOTAL CELLS COUNTED 100
--- NOTE | 2023-04-02 18:35 | NUR ---
PT IS A/OX3, FORGETFULL. PT IS UP IND USEING HIS CANE IN THE ROOM. THE PT DENIED ANY PAIN. THE PT REPORTED SOME LIGHTHEADEDNESS TODAY, PTS BP WAS LOW. PT WAS GIVEN A 500 CC BOLUS. FAMILY WAS IN TO SEE THE PT TODAY. THE PT HAS BEEN PLEASANT AND COOPERATIVE. CALL LIGHT IN REACH. BED IN THE LOW POSITION
[2023-04-03 04:25] VITALS: BP 101/60
[2023-04-03 05:44] LABS: Hemoglobin 14.8 g/dL (13.5-17.5); Mean Corpuscular HGB 30.2 pg (26.0-34.0); Mean Corpuscular HGB Conc 32.9 g/dL (31.5-36.5); Mean Corpuscular Volume 92 fL (80-100); Mean Platelet Volume 10.7 fL (9.1-12.4); Platelet Count 106 K/mm3 (150-400); RDW Coefficient Variation 14.3 % (11.7-14.2); RDW Standard Deviation 48.1 fL (35.1-46.3); White Blood Cell Count 24.43 K/mm3 (4.00-11.30)
[2023-04-03 06:04] LABS: BAND PERCENT MAN 1 % (0-8); BASOPHILS PERCENT MAN 0 % (0-2); EOSINOPHILS PERCENT MAN 0 % (0-6); LYMPHOCYTES % ATYPICAL MANUAL 2 % (0-0); LYMPHOCYTES ABSOLUTE MAN 22.23 K/mm3 (0.84-5.20); LYMPHOCYTES PERCENT MAN 89 % (21-46); MONOCYTES ABSOLUTE MAN 0.24 K/mm3 (0.16-1.47); MONOCYTES PERCENT MAN 1 % (4-13); NEUTROPHILS ABSOLUTE MAN 1.95 K/mm3 (1.96-9.15); SEG NEUTROPHILS PERCENT MAN 7 % (41-73); TOTAL CELLS COUNTED 100
[2023-04-03 06:25] LABS: Bun/Creatinine Ratio 31.2 (12.0-20.0); Calcium, Blood 9.1 mg/dL (8.5-10.1); Creatinine, Blood 0.74 mg/dL (0.60-1.20); Potassium, Blood 4.2 mmol/L (3.5-5.5)
[2023-04-03 07:42] VITALS: BP 75/57
[2023-04-03 08:00] VITALS: BP 84/56
--- NOTE | 2023-04-03 08:05 | NUR ---
RN NOTIFIED DR. PUENTES PT'S BP = 84/56 (MANUAL). MD GAVE NO NEW ORDERS. RN TO RECHECK BP IN 2 HRS AND NOTIFY MD IF BP IS LOWERING.
[2023-04-03 09:45] VITALS: BP 80/50
[2023-04-03 15:23] VITALS: BP 84/55
--- NOTE | 2023-04-03 18:51 | NUR ---
SUMMARY- NO ACUTE EVENTS THIS SHIFT. NO CHANGES.
[2023-04-03 20:20] VITALS: BP 100/69
[2023-04-04 02:24] VITALS: BP 100/63
--- NOTE | 2023-04-04 04:22 | NUR ---
SHIFT SUMMARY PATIENT A/Ox3, PLEASANT, COOPERATIVE. DENIES PAIN NOR DISCOMFORT. NO APPARENT CONFUSION NOTED, PATIENT ACKNOWLEDGED THAT HE IS AWARE THAT HE IS GETTING MORE FORGETFUL LATELY. VERY PRONOUNCED HEART MURMUR, STATES HE'S HAD IT A LONG TIME. NO ACUTE CHANGES NOTED OVERNIGHT. BED LOCKED, CALL LIGHT WITHIN REACH.
[2023-04-04 07:43] VITALS: BP 94/62
[2023-04-04 15:15] VITALS: BP 89/57
--- NOTE | 2023-04-04 18:20 | NUR ---
SUMMARY- NO ACUTE EVENTS THIS SHIFT. NO PT CHANGES. PT AAOX1 THIS SHIFT TO SELF ONLY.
[2023-04-04 20:08] VITALS: BP 102/65
[2023-04-05 03:28] VITALS: BP 126/73
--- NOTE | 2023-04-05 05:08 | NUR ---
SHIFT SUMMARY PT SITTING UP IN BED WATCHING TV DURING BEDSIDE ROUNDS, PT DENIES PAIN, SOB, PT TOOK SCHEDULED MED AT HS, PT REFUSED STOOL SOFTNERS AND REQUESTED TO ONLY TAKE THE AM MEDS, PT INDEPENDENT IN ROOM, PT SLEPT T/O NIGHT- BED LOW POSITION, CALL LIGHT WITHIN REACH
[2023-04-05 08:03] VITALS: BP 109/68
[2023-04-05 17:04] VITALS: BP 93/61
--- NOTE | 2023-04-05 18:52 | NUR ---
SUMMARY- NO ACUTE EVENTS THIS SHIFT. NO PT CHANGES. AAOX1. STEADY ON FEET WHEN AMBULATING.
[2023-04-05 20:06] VITALS: BP 115/74
--- NOTE | 2023-04-06 03:49 | NUR ---
SHIFT SUMMARY A/OX SELF ONLY. CONFUSED, SHORT TERM MEMORY NOT INTACT. COOPERATIVE. INDEPENDENT TO BATHROOM. ANSWERS QUESTIONS APPROPRIATELY WHEN ABLE. CONTINENT. PENDING PLACEMENT. ABLE TO MAKE NEEDS KNOWN. CALL LIGHT IN REACH. BED LOCKED IN LOW POSITION.
[2023-04-06 04:56] VITALS: BP 104/76
[2023-04-06 07:13] VITALS: BP 130/71
[2023-04-06 16:03] VITALS: BP 100/63
--- NOTE | 2023-04-06 17:54 | NUR ---
PATIENT A/OX2-3, UP INDEPENDENTLY IN ROOM AND HALLS. VERY PLEASANT AND COOPERATIVE WITH CARE. CONTINENT OF BOWEL AND BLADDER. DENIES ANY PAIN OR DISCMOFORT. NO NEW CONCERNS THIS SHIFT, AWAITING LONF TERM PLACEMENT.
[2023-04-06 19:36] VITALS: BP 97/71
[2023-04-07 05:21] VITALS: BP 100/53
--- NOTE | 2023-04-07 06:09 | NUR ---
SHIFT SUMMARY 82 YR M ADMITTED ON 03/22/23 FOR PNEUMONIA AND CONFUSION. FULL CODE. NO ACUTE CHANGES THIS SHIFT. PT IS VERY PLEASANT AND COOPERATIVE WITH CARE. NO C/O PAIN OR DISCOMFORT THIS SHIFT. HE STATED THAT HE WAS TIRED AND WANTED TO GO TO BED. HE APPEARS TO HAVE SLEPT COMFORTABLY FOR MOST OF THIS SHIFT.
[2023-04-07 07:01] LABS: Hematocrit 41.5 % (37.0-53.0); Hemoglobin 13.6 g/dL (13.5-17.5); Mean Corpuscular HGB 30.3 pg (26.0-34.0); Mean Corpuscular HGB Conc 32.8 g/dL (31.5-36.5); Mean Corpuscular Volume 92 fL (80-100); Mean Platelet Volume 10.8 fL (9.1-12.4); Platelet Count 86 K/mm3 (150-400); RDW Coefficient Variation 14.6 % (11.7-14.2); Red Blood Cell Count 4.49 M/mm3 (4.30-5.90); White Blood Cell Count 15.95 K/mm3 (4.00-11.30)
[2023-04-07 07:10] LABS: Bun/Creatinine Ratio 27.4 (12.0-20.0); Calcium, Blood 8.8 mg/dL (8.5-10.1); Creatinine, Blood 0.66 mg/dL (0.60-1.20); Potassium, Blood 3.8 mmol/L (3.5-5.5)
[2023-04-07 07:19] VITALS: BP 93/62
[2023-04-07 15:01] VITALS: BP 100/52
[2023-04-07 19:15] VITALS: BP 107/67
--- NOTE | 2023-04-07 19:20 | NUR ---
NO ACUTE CHANGES THIS SHIFT. PATIENT INDEPENDENT IN ROOM AND WALKING IN HALLS. VSS, ON RA. ACHS BLOOD SUGARS. TOLERATING ADA DIET. CONTINUES TO AWAIT JUNIOR LINUX ADMINISTRATOR PLACEMENT.
[2023-04-08 04:53] VITALS: BP 114/86
[2023-04-08 05:20] LABS: Hematocrit 41.9 % (37.0-53.0); Hemoglobin 13.8 g/dL (13.5-17.5); Mean Corpuscular HGB 30.3 pg (26.0-34.0); Mean Corpuscular HGB Conc 32.9 g/dL (31.5-36.5); Mean Corpuscular Volume 92 fL (80-100); Mean Platelet Volume 11.1 fL (9.1-12.4); NRBC ABSOLUTE 0.07 K/mm3 (0.00-0.02); NRBC Auto 0.5 /100 WBC (0.0-0.2); Platelet Count 87 K/mm3 (150-400); RDW Coefficient Variation 14.5 % (11.7-14.2); Red Blood Cell Count 4.55 M/mm3 (4.30-5.90); White Blood Cell Count 14.64 K/mm3 (4.00-11.30)
--- NOTE | 2023-04-08 05:26 | NUR ---
SHIFT SUMMARY: PT IS ADMITTED FOR PNEUMONIA AND CONFUSION AND IS A FULL CODE. HE IS ALERT AND IS ABLE TO MAKE MOST NEEDS KNOWN. IS NOTED TO HAVE BOUTS OF CONFUSION BUT HAS BEEN EASY TO REORIENT. HE IS UP IN HIS ROOM AD-BRIDGET AND DOES NOT STATE E HAS ANY PAIN WHEN ASKED. IV TO RIGHT FOREARM IS PATENT WITH A DRESSING THAT IS CDI.
[2023-04-08 07:12] LABS: BASOPHILS PERCENT MAN 0 % (0-2); EOSINOPHILS PERCENT MAN 0 % (0-6); LYMPHOCYTES % ATYPICAL MANUAL 2 % (0-0); LYMPHOCYTES ABSOLUTE MAN 11.27 K/mm3 (0.84-5.20); LYMPHOCYTES PERCENT MAN 75 % (21-46); MONOCYTES PERCENT MAN 0 % (4-13); NEUTROPHILS ABSOLUTE MAN 3.36 K/mm3 (1.96-9.15); SEG NEUTROPHILS PERCENT MAN 23 % (41-73); TOTAL CELLS COUNTED 100
[2023-04-08 08:07] VITALS: BP 108/68
[2023-04-08 15:58] VITALS: BP 111/68
--- NOTE | 2023-04-08 17:56 | NUR ---
NO ACUTE CHANGES THIS SHIFT. PATIENT INDEPENDENT IN ROOM AND PLEASANT AND COOPERATIVE WITH CARE. AWAITING CUSTODIAL PLACEMENT,
[2023-04-08 20:37] VITALS: BP 138/85
[2023-04-09 04:51] LABS: Hematocrit 41.4 % (37.0-53.0); Hemoglobin 13.7 g/dL (13.5-17.5); Mean Corpuscular HGB Conc 33.1 g/dL (31.5-36.5); Mean Corpuscular Volume 91 fL (80-100); Mean Platelet Volume 10.6 fL (9.1-12.4); Platelet Count 88 K/mm3 (150-400); RDW Coefficient Variation 14.6 % (11.7-14.2); Red Blood Cell Count 4.56 M/mm3 (4.30-5.90); White Blood Cell Count 14.98 K/mm3 (4.00-11.30)
[2023-04-09 04:53] VITALS: BP 107/68
--- NOTE | 2023-04-09 05:22 | NUR ---
SHIFT SUMMARY: PT IS ADMITTED FOR PNEUMONIA AND CONFUSION AND IS A FULL CODE. HE IS ALERT AND ABLE TO MAKE HIS NEEDS KNEED NOWN. HELD A QUICK CONVERSATION WITH HIM WHILE PASSING HS MEDS ABOUT THE FOOTBALL GAME HE WAS WATCHING. HE WAS UNABLE TO GIVE THE NAME OF BOTH TEAMS PLAYING EVEN THOUGH BOTH TEAMS NAMES WERE ON THE SCREEN WHEN ASKED. OTHERWISE WAS ABLE TO RECALL MAIN DETAILS ABOUT THE GAME. UP AD-BRIDGET WHILE IN HIS ROOM. DENIES PAIN OR DISCOMFORT WHEN ASKED.
[2023-04-09 06:00] LABS: BASOPHILS PERCENT MAN 0 % (0-2); EOSINOPHILS ABSOLUTE MAN 0.14 K/mm3 (0.00-0.68); EOSINOPHILS PERCENT MAN 1 % (0-6); LYMPHOCYTES ABSOLUTE MAN 11.38 K/mm3 (0.84-5.20); LYMPHOCYTES PERCENT MAN 76 % (21-46); MONOCYTES ABSOLUTE MAN 0.44 K/mm3 (0.16-1.47); MONOCYTES PERCENT MAN 3 % (4-13); NEUTROPHILS ABSOLUTE MAN 2.99 K/mm3 (1.96-9.15); SEG NEUTROPHILS PERCENT MAN 20 % (41-73); TOTAL CELLS COUNTED 100
[2023-04-09 07:21] VITALS: BP 113/61
[2023-04-09 16:50] VITALS: BP 103/69
--- NOTE | 2023-04-09 18:49 | NUR ---
SHIFT SUMMARY: GLORIA IS A&OX 3. VSS, NO ACUTE EVENTS THIS SHIFT. BLOOD SUGAR DID TREND UP DURING THE DAY. HE IS INDEPENDENT IN THE ROOM, TOLERATING PO INTAKE WELL, AND HAS DENIED PAIN THIS SHIFT. HE DENIES ANY DIFFICULTIES WITH ELIMINATION. HE IS LYING IN BED WITH THE CALL LIGHT IN REACH. WCTM UNTIL REPORT IS GIVEN TO PROGRAM SERVICES ASSISTANT RN.
[2023-04-09 19:30] VITALS: BP 108/67
--- NOTE | 2023-04-10 04:04 | NUR ---
SHIFT SUMMARY PT HAS KEPT TO HIMSELF MUCH OF THE SHIFT. COOPERATIVE WITH CARE. CALL LIGHT WITHIN HIS REACH. PT HAS NO COMPLAINTS AT THIS TIME.
[2023-04-10 05:53] VITALS: BP 127/83
[2023-04-10 07:33] VITALS: BP 118/70
--- NOTE | 2023-04-10 09:00 | NUR ---
pt sitting up in bed eating breakfast, very pleasant and cooperative with care a/ox3, occ forgetful, lungs are clear t/o, on r/a, no cough noted, hrr, btx4, voids without diff, skin c/w/d, maew, up indep in room, call light in reach.
[2023-04-10 16:36] VITALS: BP 117/73
--- NOTE | 2023-04-10 18:07 | NUR ---
pt is very pleasant, had an uneventful day, up ad maría in room, no complaints or needs, except coffee a few times, no acute changes this shift. call light in reach.
[2023-04-10 21:20] VITALS: BP 101/62
--- NOTE | 2023-04-11 03:55 | NUR ---
SHIFT SUMMARY PT SLEEPING OFF AND ON THROUGHOUT SHIFT. PT HAS HAD NO COMPLAINTS AND HAS KEPT TO HIMSELF TONIGHT. CALL LIGHT IS WITHIN PT REACH.
[2023-04-11 05:49] VITALS: BP 121/82
[2023-04-11 07:39] VITALS: BP 106/60
--- NOTE | 2023-04-11 09:00 | NUR ---
pt laying in bed watching tv, a/ox3, pleasant and cooperative with care, follows commands well, reports a good night, just a bit of trouble falling asleep, lungs are clear t/o, resp even and unlabored, no cough noted, on r/a, hrr, murmur noted, no edema noted, ppp+2, cap refill <3sec vs stable, afebrile, btx4, abd flat soft nontender, voids without diff, skin c/w/d, maew, up ad maría in room, bita, call light in reach.
[2023-04-11 16:15] VITALS: BP 107/76
--- NOTE | 2023-04-11 18:57 | NUR ---
pt had an uneventful day, no acute changes this shift. blood sugars were a bit elevated in the 200's today, no complaints or needs. call light in reach.
[2023-04-11 20:31] VITALS: BP 107/61
--- NOTE | 2023-04-12 03:37 | NUR ---
SHIFT SUMMARY PT CONTINUES TO BE INDEPENDENT IN HIS ROOM. PT HAS NO COMPLAINTS OR NEEDS AT THIS TIME. PT HAS BEEN COOPERATIVE WITH CARE. CALL LIGHT IS WITHIN HIS REACH.
[2023-04-12 04:39] VITALS: BP 102/65
[2023-04-12 07:37] VITALS: BP 105/73
[2023-04-12 15:52] VITALS: BP 104/66
--- NOTE | 2023-04-12 17:52 | NUR ---
SHIFT SUMMARY PT AOX3-4, SOME FORGETFULNESS. INDEPENDENT IN THE ROOM, WALKED THE HALLS WITH THIS NURSE TODAY AND TOLERATED WELL. NO COMPLAINTS FROM THE PT. POSSIBLE DISCHARGE TOMORROW. CALL LIGHT WITHIN REACH, BED IN THE LOWEST POSITION. WILL REPORT TO ONCOMING NURSE.
[2023-04-12 20:06] VITALS: BP 106/67
--- NOTE | 2023-04-13 04:09 | NUR ---
SHIFT SUMMARY PATIENT A/Ox3, FORGETFUL, PLEASANT/COOPERATIVE. DENIES PAIN NOR DISCOMFORT. RECEIVED INSULIN PEN INSTRUCTIONS AND DEMONSTRATED PRIOR TO SELF-INJECTING, HOWEVER, PATIENT NEEDED FREQUENT CUES AT EVERY STEP. REQUIRED REPEATED INSTRUCTIONS. PATIENT DOES NOT APPEAR CONFIDENT THAT HE WILL REMEMBER. WILL PASS ON IN REPORT TO DAY SHIFT TO PROVIDE ADDITIONAL PATIENT TEACHING/REINFORCEMENT. NO ACUTE CHANGES NOTED OVERNIGHT. BED LOCKED, CALL LIGHT WITHIN REACH.
[2023-04-13 07:31] VITALS: BP 107/72
[2023-04-13] MEDS ORDERED: MIRALAX17 GM PO (11:22)
[2023-04-13] MEDS ORDERED: ATOR80 PO (11:22)
[2023-04-13] MEDS ORDERED: Aspirin325 MG PO (11:22)
[2023-04-13] MEDS ORDERED: DONE5 PO (11:22)
[2023-04-13] MEDS ORDERED: INSULANPEN SC (11:23)
--- NOTE | 2023-04-13 15:09 | NUR ---
DISCHARGE NOTE PT DISCHARGED TO HOME WITH HOME HEALTH, PICKED UP BY HIS SON AND DIL. EDUCATION PROVIDED TO THE FAMILY AT THE BS, DISCHARGE INFORMATION PROVIDED. MEDICATIONS FAXED TO THE PHARMACY OF THEIR CHOICE.
== END 2023-04-13 15:05 | disposition home health service (06) | DRG 64 ==
LOC: ER 18:58 → MEDS 21:56 → ENPENDDIS 04-13 11:06 → MEDS 04-13 15:05
PROVIDERS: Emergency Medicine; Family Medicine; Internal Medicine; ADMIT Internal Medicine
DX: I63.9 Cerebral infarction, unspecified (principal); G92.8 Other toxic encephalopathy; J96.02 Acute respiratory failure with hypercapnia; E87.1 Hypo-osmolality and hyponatremia; C91.10 Chronic lymphocytic leukemia of B-cell type not having achieved remission; E11.65 Type 2 diabetes mellitus with hyperglycemia; I10 Essential (primary) hypertension; E78.5 Hyperlipidemia, unspecified; F01.50 Vascular dementia, unspecified severity, without behavioral disturbance, psychotic disturbance, mood disturbance, and anxiety; E87.6 Hypokalemia; E83.51 Hypocalcemia; E83.39 Other disorders of phosphorus metabolism; I35.0 Nonrheumatic aortic (valve) stenosis; I71.21 Aneurysm of the ascending aorta, without rupture; Z79.84 Long term (current) use of oral hypoglycemic drugs; Z87.891 Personal history of nicotine dependence; Z88.0 Allergy status to penicillin; Z88.1 Allergy status to other antibiotic agents; Z79.2 Long term (current) use of antibiotics
CPT/HCPCS: 36415; 70450; 70496; 70498; 70551; 71045; 80048; 80053; 80061; 80069; 82140; 82607; 82728; 82746; 82803; 82947; 83036; 83540; 83550; 83605; 84145; 85007; 85025; 85027; 85610; 86592; 87040; 92610; 93005; 93010; 93306; 96361; 96372; 96374; 96376; 97110; 97112; 97116; 97129; 97130; 97161; 97165; 97168; 97530; 97535; 99285-25; A9270; G0378; J0456; J1650; J1815; J2704; J3010; J3480; J7030; J7040; J7050; J7060; Q9967

== ENCOUNTER 2025-01-03 12:02 | Day surgery (SDC) | payer OTHER ==
[~2025-01-03 12:02] MED LIST changes: +ATOR80 PO; +Aspirin325 MG PO; +Balanced Salt Epinephrine Irrigation Solution 500 mL IR SCH; +DONE5 PO; +GLIM2 PO; +INSULANPEN SC; +MIRALAX17 GM PO; +Moxifloxacin HCL 0.5 MG/0.1 ML 0.4MLSYR RIGHTEYE SCH; +Ondansetron 4 MG SoluTab MM PRN; +PHENYLEPHRINE\\TROPICAMIDE\\TETRACAINE OPHTHALMIC DILATING SOLN RIGHTEYE PRN; +Povidone-Iodine 450 DROP/30 ML Solution ONE; +Povidone-Iodine 450 DROP/30 ML Solution RIGHTEYE SCH; +TAMS.4ER PO; +Tetracaine HCl/Pf 0.5% Opth Soln 4 ml ONE; +Triamcinolone Inj Susp 40 MG / ML 1ML Vial INJ SCH; +Triamcinolone Inj Susp 40 MG / ML 1ML Vial ONE; +diazePAM 2 MG,diazePAM 5 MG PO SCH
== END 2025-01-03 12:10 | disposition home or self-care (01) ==
LOC: ORSCSDS 12:02
DX: H25.11 Age-related nuclear cataract, right eye (principal); Z53.9 Procedure and treatment not carried out, unspecified reason
CPT/HCPCS: A9270; J3301

== ENCOUNTER 2025-05-04 11:04 | Inpatient (IN) | payer OTHER ==
[~2025-05-04] VITALS: Ht 172.7 cm; Wt 55.9 kg
[2025-05-04] VITALS (27 sets, daily range): BP systolic 83–121; BP diastolic 61–91
[~2025-05-04 11:04] MED LIST changes: -Balanced Salt Epinephrine Irrigation Solution 500 mL IR SCH; -Moxifloxacin HCL 0.5 MG/0.1 ML 0.4MLSYR RIGHTEYE SCH; -Ondansetron 4 MG SoluTab MM PRN; -PHENYLEPHRINE\\TROPICAMIDE\\TETRACAINE OPHTHALMIC DILATING SOLN RIGHTEYE PRN; -Povidone-Iodine 450 DROP/30 ML Solution ONE; -Povidone-Iodine 450 DROP/30 ML Solution RIGHTEYE SCH; -Tetracaine HCl/Pf 0.5% Opth Soln 4 ml ONE; -Triamcinolone Inj Susp 40 MG / ML 1ML Vial INJ SCH; -Triamcinolone Inj Susp 40 MG / ML 1ML Vial ONE; -diazePAM 2 MG,diazePAM 5 MG PO SCH
[2025-05-04 11:25] LABS: Hematocrit 46.5 % (37.0-53.0); Hemoglobin 15.4 g/dL (13.5-17.5); Mean Corpuscular HGB Conc 33.1 g/dL (31.5-36.5); Mean Corpuscular Volume 96 fL (80-100); NRBC ABSOLUTE 0.00 K/mm3 (0.00-0.02); NRBC Auto 0.0 /100 WBC (0.0-0.2); Platelet Count 116 K/mm3 (150-400); RDW Coefficient Variation 14.8 % (11.7-14.2); RDW Standard Deviation 52.5 fL (35.1-46.3)
[2025-05-04 11:48] LABS: Ethanol (Alcohol), Blood, Med <3 mg/dL; Magnesium, Blood 3.0 mg/dL (1.6-2.4)
[2025-05-04 12:03] LABS: BASOPHILS ABSOLUTE MAN 0.00 K/mm3 (0.00-0.23); BASOPHILS PERCENT MAN 0 % (0-2); EOSINOPHILS ABSOLUTE MAN 0.00 K/mm3 (0.00-0.68); EOSINOPHILS PERCENT MAN 0 % (0-6); LYMPHOCYTES ABSOLUTE MAN 42.62 K/mm3 (0.84-5.20); LYMPHOCYTES PERCENT MAN 86 % (21-46); MONOCYTES ABSOLUTE MAN 0.99 K/mm3 (0.16-1.47); MONOCYTES PERCENT MAN 2 % (4-13); NEUTROPHILS ABSOLUTE MAN 5.94 K/mm3 (1.96-9.15); SEG NEUTROPHILS PERCENT MAN 12 % (41-73)
[2025-05-04 12:10] LABS: Source, Urine Clean Catch
[2025-05-04] MEDS ORDERED: Ondansetron HCl 2 MG / ML 2ML Vial IV ONE (12:10)
[2025-05-04 12:13] LABS: Bilirubin, Urine Neg (Neg); Glucose Qualitative, Urine 4+ (Neg); Ketones, Urine 2+ (Neg); Leukocyte Esterase, Urine Neg (Neg); Protein, Urine 1+ (Neg); Specific Gravity, Urine 1.010 (1.003-1.022); Urobilinogen, Urine NORM (Normal)
[2025-05-04 12:18] LABS: Color, Urine Pale Yellow (P-Yellow)
[2025-05-04 12:45] LABS: Alanine Aminotransfer (ALT/SGP 32 U/L (12-78); Albumin, Blood 4.0 g/dL (3.4-5.0); Albumin/Globulin Ratio 1.4 (0.8-1.8); Anion Gap 19 mmol/L (3-11); Aspartate Aminotrans (AST/SGOT 32 U/L (12-37); Bilirubin, Total 0.9 mg/dL (0.1-1.0); Blood Urea Nitrogen 32 mg/dL (8-24); CO2, Blood 21 mmol/L (21-32); Calcium, Blood 10.3 mg/dL (8.5-10.1); Chloride, Blood 100 mmol/L (98-108); Creatinine, Blood 0.88 mg/dL (0.60-1.20); Globulin, Blood 2.9 g/dL (2.2-4.0); Glucose, Blood 1271 mg/dL (70-99); Potassium, Blood 5.8 mmol/L (3.5-5.5); Sodium, Blood 134 mmol/L (136-145); Total Protein, Blood 6.9 g/dL (6.4-8.2)
[2025-05-04 13:10] LABS: pH Blood Venous 7.29 (7.34-7.37)
[2025-05-04] MEDS ORDERED: Insulin Human Regular 100 UNIT in NS 100 ML IV SCH (13:10)
[2025-05-04 14:04] LABS: Glucose, Blood 1050 mg/dL (70-99)
[2025-05-04 14:04] LABS: Glucose, Blood 1031 mg/dL (70-99)
[2025-05-04] MEDS ORDERED: Prochlorperazine Edisylate 10 mg Vial IV PRN (14:20)
[2025-05-04] MEDS ORDERED: NS 1,000 ML IV SCH (14:20)
[2025-05-04] MEDS ORDERED: Polyethylene Glycol 3350 17 gm PO PRN (14:20)
[2025-05-04] MEDS ORDERED: FLU VACC TS2025(65UP)/MF59C/PF 45 MCG/0.5 ML SYRINGE IM SCH (14:30)
[2025-05-04 14:56] LABS: Anion Gap 10.0 mmol/L (3-11); CO2, Blood 28.0 mmol/L (21-32); Chloride, Blood 109.0 mmol/L (98-108); Potassium, Blood 4.2 mmol/L (3.5-5.5); Sodium, Blood 143.0 mmol/L (136-145)
[2025-05-04 15:37] LABS: Glucose, Blood 872 mg/dL (70-99)
[2025-05-04 16:46] LABS: Glucose, Blood 718 mg/dL (70-99)
--- NOTE | 2025-05-04 17:29 | NUR ---
ARRIVAL TO ICU PT ARRIVED TO ICU AT APPROXIMATELY 1530. PT ALERT, ORIENTED TO SELF. PT RESTLESS, ATTEMPTING TO GET OUT OF BED, ENDORSING LEAVING AND GOING OUTSIDE. PT ABLE TO STATE NAME AND , BELIEVES TO BE IN [place], UNABLE TO ANSWER OTHER ORIENTATION QUESTIONS. PT MOVES EXTREMITIES EQUALLY BILATERALLY. HR 100-120'S SINUS, MAP >65, SBP 80-120'S. PT ON RA, OXYGEN SATURATION >95%. ABDOMEN SOFT, BOWEL TONES ACTIVE THROUGHOUT. PT UPPER DENTURES REMOVED, COATED IN DARK BROWN RESIDUE. PTS LOWER TEETH ALSO COVERED IN DARK BROWN RESIDUE, ORAL CARE PERFORMED. PT ABLE TO VOID IN URINAL WITH ASSISTANCE. PIV IN PLACE TO RFA AND LAC, INSULIN DRIP INFUSING ON ARRIVAL, SEE FLOWSHEET FOR TITRAITONS. NS CURRENTLY INFUSING AT 100MLS/HR. PT CURRENTLY RESTING IN BED, 1:1 SITTER AT THE BEDSIDE. BED IN LOWEST POSITION, CALL LIGHT WITHIN REACH, CARE CONTINUES.
[2025-05-04 17:56] LABS: Glucose, Blood 654 mg/dL (70-99)
[2025-05-04 18:54] LABS: Anion Gap 10.0 mmol/L (3-11); CO2, Blood 28.0 mmol/L (21-32); Chloride, Blood 115.0 mmol/L (98-108); Potassium, Blood 3.8 mmol/L (3.5-5.5); Sodium, Blood 149.0 mmol/L (136-145)
--- NOTE | 2025-05-04 19:47 | NUR ---
ASSUME CARE: BEDSIDE REPORT RECIEVED FROM DAYSHIFT RN. PT SLEEPING, PT CLOTH COLORS EXAMINER AT BEDSIDE DUE TO PT CONTINUING TO GET OUT OF BED UNSAFELY. PT ALERT AND ORIENTED TO SELF ONLY, REPORT FROM FAMILY THAT PT IS A/Ox4 AT BASELINE. INSULIN GTT AT 2.5 U/HR, NS AT 100. ATTENDS IN PLACE DUE TO PT INCONTINENCE. WILL UPDATE NEEDED.
[2025-05-04] MEDS ORDERED: Docusate Sodium/Senna 1 Tab PO SCH (21:00)
[2025-05-04] MEDS ORDERED: Lactobacil 2-S.Thermo-Bifido 1 1 Cap PO SCH (21:00)
[2025-05-04 22:44] LABS: Anion Gap 10.0 mmol/L (3-11); Blood Urea Nitrogen 23.0 mg/dL (8-24); CO2, Blood 29.0 mmol/L (21-32); Calcium, Blood 10.1 mg/dL (8.5-10.1); Chloride, Blood 119.0 mmol/L (98-108); Creatinine, Blood 0.68 mg/dL (0.60-1.20); Glucose, Blood 350.0 mg/dL (70-99); Potassium, Blood 3.8 mmol/L (3.5-5.5); Sodium, Blood 154.0 mmol/L (136-145)
--- NOTE | 2025-05-04 22:51 | NUR ---
UPDATE: HOSPITALIST (SOMMER) UPDATED ON PT SODIUM LEVELS INCREASING. NEW ORDERS GIVEN, SEE EMAR.
--- NOTE | 2025-05-04 23:40 | NUR ---
UPDATE: HOSPITALIST (BERONICA) NOTIFIED OF PT GLUCOSE 280. NEW ORDERS GIVEN FOR D5 X1 LITER AT 100 ML/HR, DO DECREASE SODIUM LEVEL, INSULIN GTT CONTINUED TO KEEP GLUCOSE AROUND TO 200 LEVEL. WILL UPDATE NEEDED.
[2025-05-05] VITALS (59 sets, daily range): BP systolic 80–134; BP diastolic 53–93
[2025-05-05 02:40] LABS: Hematocrit 44.9 % (37.0-53.0); Hemoglobin 15.2 g/dL (13.5-17.5); Mean Corpuscular HGB Conc 33.9 g/dL (31.5-36.5); Mean Corpuscular Volume 92 fL (80-100); NRBC ABSOLUTE 0.00 K/mm3 (0.00-0.02); NRBC Auto 0.0 /100 WBC (0.0-0.2); Platelet Count 109 K/mm3 (150-400); RDW Coefficient Variation 15.3 % (11.7-14.2); RDW Standard Deviation 51.3 fL (35.1-46.3)
[2025-05-05 03:05] LABS: Albumin, Blood 3.7 g/dL (3.4-5.0); Anion Gap 6 mmol/L (3-11); Blood Urea Nitrogen 24 mg/dL (8-24); CO2, Blood 32 mmol/L (21-32); Calcium, Blood 10.1 mg/dL (8.5-10.1); Chloride, Blood 121 mmol/L (98-108); Creatinine, Blood 0.65 mg/dL (0.60-1.20); Glucose, Blood 165 mg/dL (70-99); Magnesium, Blood 2.8 mg/dL (1.6-2.4); Phosphorus, Blood 3.1 mg/dL (2.5-4.9); Potassium, Blood 3.8 mmol/L (3.5-5.5); Sodium, Blood 155 mmol/L (136-145)
--- NOTE | 2025-05-05 04:52 | NUR ---
SHIFT SUMMARY: PT CONTINUES TO BE ALERT AND ORIENTED TO SELF ONLY. PT HAS WORD SALAD, BUT APPEARS TO BE CLEARING UP A LITTLE, TELLING JOKES. INSULIN GTT INFUSING, SEE FLOWSHEET FOR TITRATIONS, D5 INFUSING AT 100 ML/HR. SBP 80-100s, MAP>65. PT DENIES CHEST PAIN OR SOB. SPO2>90% ON RA. PT RETAINING URINE DESPITE MULTIPLE ATTEMPTS TO USE URINAL. STRAIGHT CATH X1 W/ 750 ML LIGHT YELLOW URINE OUT. PT HAS SITTER AT BEDSIDE, CONTINUES TO TRY TO GET OUT OF BED AND PULL AT LINES, BUT EASILY REDIRECTABLE. BREAK NURSE ATTEMPTED TO STAND PT AT BEDSIDE W/2P ASSISTANCE, STATED PT WAS VERY WEAK AND UNABLE TO STAND FOR LONG. WILL REPORT TO ONCOMING RN.
[2025-05-05 07:01] LABS: Anion Gap 9.0 mmol/L (3-11); Blood Urea Nitrogen 25.0 mg/dL (8-24); CO2, Blood 30.0 mmol/L (21-32); Calcium, Blood 9.7 mg/dL (8.5-10.1); Chloride, Blood 118.0 mmol/L (98-108); Creatinine, Blood 0.66 mg/dL (0.60-1.20); Glucose, Blood 237.0 mg/dL (70-99); Potassium, Blood 4.0 mmol/L (3.5-5.5); Sodium, Blood 153.0 mmol/L (136-145)
[2025-05-05] MEDS ORDERED: Insulin Glargine-Yfgn 100 Unit/mL 3 ML SYR SC SCH ×2 (09:00→21:00)
[2025-05-05] MEDS ORDERED: Cholecalciferol 1000 Unit Tablet (=25MCG) PO SCH (09:00)
[2025-05-05] MEDS ORDERED: Enoxaparin 40 MG/0.4 ML SYR SC SCH (09:00)
[2025-05-05] MEDS ORDERED: Multivitamins 1 Tab PO SCH (09:00)
--- NOTE | 2025-05-05 09:23 | NUR ---
ASSUMPTION OF CARE ASSUMED CARE OF PATIENT AT APPROXIMATLEY 0700. PT RESTING IN BED, ALERT AND ORIENTED TO SELF. PT UNSURE OF LOCATION/YEAR. PT FOLLOWS DIRECTION WHEN PROMPTED, MOVES EXTREMITIES EQUALLY BILATERALLY. PT CONFUSED, MAKING NONSENSICAL STATEMENTS. HR 90-120'S SINUS, MAP >65. PT ON RA, OXYGEN SATURATION >95%. ABDOMEN SOFT, BOWEL TONES HYPOACTIVE. PT TOLERATING PO INTAKE. ATTENDS IN PLACE. PIV IN PLACE TO RFA AND LAC. D5 INFUSING AT 100MLS/HR, INSULIN INFUSING, SEE FLOWSHEET FOR TITRATIONS. BED IN LOWEST POSITION, CALL LIGHT WITHIN REACH, 1:1 SITTER AT THE BEDSIDE. CARE CONTINUES.
[2025-05-05] MEDS ORDERED: Insulin Human Lispro 100 Units/ML 3ML Syringe SC SCH (11:30)
[2025-05-05] MEDS ORDERED: Insulin Glargine-Yfgn 100 Unit/mL 3 ML SYR SC ONE (16:25)
--- NOTE | 2025-05-05 16:26 | NUR ---
PT UPDATE SPOKE WITH DR CARDOZO REGARDING PT BLOOD SUGAR. INSTRUCTED TO GIVE 2100 DOSE OF GLARGINE NOW. CARE CONTINUES.
--- NOTE | 2025-05-05 18:00 | NUR ---
SHIFT SUMMARY PT CONTINUES TO REST IN BED, ALERT, ORIENTED TO SELF. PT UP IN RECLINER THIS AFTERNOON WITH ASSISTANCE. PT AGGITATED AT TIMES, PULLING AT IVS AND MONITORING EQUIPMENT, ATTEMPTING TO GET OUT OF BED AND ENDORSING WANTING TO LEAVE. 1:1 SITTER AT THE BEDSIDE. HR 90-120'S SINUS, MAP >65. PT ON RA, OXYGEN SATURATION >95%. ABDOMEN SOFT, BOWEL TONES ACTIVE THROUGHOUT. STRAIGHT CATH X1 THIS SHIFT DUE TO RETENTION. PIV IN PLACE TO RFA AND LAC SL. BED IN LOWEST POSITION, CALL LIGHT WITHIN REACH, CARE CONTINUES.
[2025-05-06] VITALS (7 sets, daily range): BP systolic 79–104; BP diastolic 47–69
[2025-05-06 04:33] LABS: Hematocrit 39.1 % (37.0-53.0); Hemoglobin 13.1 g/dL (13.5-17.5); Mean Corpuscular HGB Conc 33.5 g/dL (31.5-36.5); Mean Corpuscular Volume 94 fL (80-100); NRBC ABSOLUTE 0.12 K/mm3 (0.00-0.02); NRBC Auto 0.4 /100 WBC (0.0-0.2); Platelet Count 82 K/mm3 (150-400); RDW Coefficient Variation 15.1 % (11.7-14.2); RDW Standard Deviation 52.6 fL (35.1-46.3)
[2025-05-06 05:08] LABS: Magnesium, Blood 2.0 mg/dL (1.6-2.4)
[2025-05-06 05:47] LABS: Albumin, Blood 2.9 g/dL (3.4-5.0); Anion Gap 4 mmol/L (3-11); Blood Urea Nitrogen 22 mg/dL (8-24); CO2, Blood 29 mmol/L (21-32); Calcium, Blood 8.6 mg/dL (8.5-10.1); Chloride, Blood 112 mmol/L (98-108); Creatinine, Blood 0.52 mg/dL (0.60-1.20); Glucose, Blood 167 mg/dL (70-99); Phosphorus, Blood 1.8 mg/dL (2.5-4.9); Potassium, Blood 3.4 mmol/L (3.5-5.5); Sodium, Blood 142 mmol/L (136-145)
--- NOTE | 2025-05-06 07:00 | NUR ---
REPORT RECEIVED FROM WAREHOUSE TECHNICIAN RN. PT IS A&O TO HIMSELF, AND ABLE TO MAKE NEEDS KNOWN. HE IS ON RA W/O2 SATS > 92%. HE IS A SBA FOR AMBULATION. SEPULVEDA IN PLACE DRAINING JOHN URINE TO GRAVITY. CLINICAL SITTER IN ROOM D/T PT PULLING LINES. NO NEEDS OR CONCERNS NOTED @ THIS TIME. BED IN LOW POSITION, CALL LIGHT AND PERSONAL BELONGINGS IN REACH.
[2025-05-06] MEDS ORDERED: Potassium Phosphate Dibasic 20 MM in Dextrose 5% 500 ML IV STA (07:20)
--- NOTE | 2025-05-06 07:29 | NUR ---
SHIFT SUMMARY: PATIENT IS ALERT AND ORIENTED TO SELF. PATIENT AT THE BEGINNING OF THE SHIFT WAS CALM AND COOPERATIVE WITH CARE, BUT AROUND 0-0ISH PATIENT BECAME MORE IRRITATED AND REFUSING CARE. TELE SHOWED SINUS RHYTHM WITH HR IN THE 80'S BPM, MAP >65. PATIENT IS ON ROOM AIR WITH >90% SPO2. PATIENT FOR EXAMPLE WAS EDUCATED ON THE IMPORTANCE OF BLADDER SCANNING AFTER HESHAMFT STRAIGHT CATHED HIM AND TO MAKE SURE HE WASN'T RETAINING SINCE IT COULD LEAD TO INFECTION. PATIENT WOULD RESPOND SAYING "NO THAT ISN'T RIGHT" OR "YOU DON'T NEED TO WORRY ABOUT MY BLADDER". THIS NURSE AND THE X2 BREAK NURSES ENDED UP BRINGING IN THE BLADDER SCANNER, DEMONSTRATING HOW IT WORKS, AND THAT IT DOESN'T HURT. PATIENT WOULD RESPOND SAYING "NO, I DON'T THINK I NEED IT". WHILE PATIENT WOULD SAY THIS RESPONSE, THIS NURSE AND THE X2 BREAK NURSES STARTED THE BLADDER SCAN, IN WHICH THE PATIENT LAID IN THE RECLINER CHAIR REPEATED STATING "NO I DON'T NEED THIS." BUT HE WAS NOT BEING PHYSICALLY CLOSED OFF WHILE BEING BLADDER SCANNED AND KEPT HIS ARMS AT HIS SIDES. PATIENT ENDED UP HAVING >400ML IN HIS BLADDER. THIS NURSE LEFT THE ROOM TO GATHER SEPULVEDA CATHETER SUPPLIES WHICH TOOK LESS THAN 2 MINUTES (ORDER WAS PLACED BY TEMO LARKIN). PATIENT WAS LEFT IN THE RECLINER CHAIR WITH CHAIR ALARM SET AND HIS DOOR WIDE OPEN AND CALL LIGHT IN REACH. BY THE TIME THIS NURSE CAME BACK INTO THE ROOM WITH SAID SUPPLIES PATIENT HAD PULLED OUT HIS IV'S, TOOK OFF ALL MONITORS, AND KEPT REPEATING "I'M READY TO GO HOME NOW. I'M DONE." IT TOOK X3-4 NURSES TO COME TO THE PATIENTS ROOM AND GIVE HIMS VERBAL INSTRUCTIONS/EDUCATION THAT HE NEEDS TO BE IN BED FOR THIS CATHETER TO BE PLACED SO HE WOULDN'T CONTINUE RETAINING WELL NEW IV'S PLACED. PATIENT KEPT RESPONDING "NO I DON'T WANT TO GO TO BED." BUT WAS GETTING OUT OF THE RECLINER CHAIR AND MOVING TO THE BED. SEPULVEDA WAS PLACED AND DRAINING TO GRAVITY WITH DARK JOHN URINE OUTPUT. NEW IV'S WERE PLACED BY CHARGE NURSE RUBEN WHICH BOTH IV'S FLUSH WNL AND ARE SALINE LOCKED. PATIENTS PRIOR IV'S THAT HE PULLED WERE WNL AND TIP OF CATHETERS INTACT. NO DRESSING APPLIED DUE TO NO ACTIVE BLEEDING OR BRUSING NOTED SINCE HE PULLED THEM OUT. CHARGE NURSE RUBEN THEN REQUESTED FROM NURSING OLD TESTAMENT PROFESSOR FOR 1:1 SITTER TO BE CALLED IN, IN WHICH THE SITTER CAME AROUND [phone] THIS MORNING. PATIENT WAS ENCOURAGED THROUGHOUT SHIFT TO INCREASE PO INTAKE OF LIQUIDS (MORE SO WATER SINCE PATIENT REFUSED OTHER LIQUIDS), PATIENT ONLY HAD A FEW SIPS OF WATER THROUGHOUT THE SHIFT. PATIENTS BP'S ARE NOT Q1H CHARTED DUE TO PATIENT REFUSING TO HAVE THE BP CUFF ON 07/12, BUT WOULD ALLOW FOR INTERMITTENT SPOT CHECKS WHICH THOSE ARE CHARTED. PATIENT IS A SBA WHEN AMBULATING IN THE ROOM DUE TO UNSTEADY GAIT AND BEING IMPULSIVE/OVERESTIMATING ABILITIES. PATIENT IS CURRENTLY LAYING IN BED WITH CALL LIGHT IN REACH. BED ALARM ON A SAFETY PRECAUTION. 1:1 SITTER AT BEDSIDE.
[2025-05-06] MEDS ORDERED: Insulin Glargine-Yfgn 100 Unit/mL 3 ML SYR SC SCH (09:00)
[2025-05-06] MEDS ORDERED: DONEPEZIL HCL10 MG PO (10:23)
[2025-05-06] MEDS ORDERED: ATOR40TA PO (10:25)
[2025-05-06] MEDS ORDERED: OXYB5 PO (10:25)
--- NOTE | 2025-05-06 14:55 | NUR ---
PT SITTING IN BED WATCHING TV W/CLINICAL SITTER @ BEDSIDE. NO NEEDS OR CONCERNS NOTED @ THIS TIME. BED IN LOW POSITION, CALL LIGHT AND PERSONAL BELONGINGS IN REACH.
--- NOTE | 2025-05-06 18:24 | NUR ---
REPORT GIVEN TO PHILL VENTURA. PT TRANSFERRED TO RM [id number] @ 1805 VIA WHEELCHAIR. SITTER ACCOMPANIED PT TO NEW ROOM.
--- NOTE | 2025-05-07 03:36 | NUR ---
SHIFT SUMMARY PT ALERT AND ORIENTED TO SELF ONLY. VERY PLEASANT AND COOPERATIVE WITH CARES. SITTER AT BEDSIDE. PERINEAL AREA WITH EXCORIATIONS AND REDNESS, BARRIER CREAM APPLIED. COCCYX WITH NOTED REDNES AND PROMINENT BONY AREA, PREVENTATIVE MEPILEX APPLIED. SEPULVEDA CATHETER IN PLACE DRAINING TO GRAVITY. 1 PERSON ASSIST. LFA AND RAC PIV, PATENT, SALINE LOCKED. CONSISTENT CARB DIET. ACHS. SLEPT THROUGHOUT THE NIGHT. VSS. BED IN LOWEST POSITION. CALL LIGHT IN REACH.
[2025-05-07 04:07] VITALS: BP 91/62
[2025-05-07 05:22] LABS: Hematocrit 37.4 % (37.0-53.0); Hemoglobin 12.7 g/dL (13.5-17.5); Mean Corpuscular HGB Conc 34.0 g/dL (31.5-36.5); Mean Corpuscular Volume 93 fL (80-100); NRBC ABSOLUTE 0.00 K/mm3 (0.00-0.02); NRBC Auto 0.0 /100 WBC (0.0-0.2); Platelet Count 76 K/mm3 (150-400); RDW Coefficient Variation 14.6 % (11.7-14.2); RDW Standard Deviation 49.7 fL (35.1-46.3)
[2025-05-07 05:43] LABS: Albumin, Blood 2.8 g/dL (3.4-5.0); Anion Gap 8 mmol/L (3-11); Blood Urea Nitrogen 16 mg/dL (8-24); CO2, Blood 26 mmol/L (21-32); Calcium, Blood 8.5 mg/dL (8.5-10.1); Chloride, Blood 108 mmol/L (98-108); Creatinine, Blood 0.53 mg/dL (0.60-1.20); Glucose, Blood 190 mg/dL (70-99); Phosphorus, Blood 2.5 mg/dL (2.5-4.9); Potassium, Blood 3.6 mmol/L (3.5-5.5); Sodium, Blood 138 mmol/L (136-145)
[2025-05-07 07:17] VITALS: BP 106/75
--- NOTE | 2025-05-07 13:05 | NUR ---
CONSULT RECEIVED AND REVIEWED. NO POLST OR AD ON FILE. POA IS ON FILE AND LISTS ANKUR MCMAHON PRIMARY AND BARRETT MCMAHON SECONDARY POA.
--- NOTE | 2025-05-07 14:17 | NUR ---
ORIENTING NURSE DOCUMENTATION REVIEW: TREATMENTS, MEDICATIONS AND PATIENT CARE PROVIDED TO PATIENT AND DOCUMENTATION ENTERED BY ORIENTING NURSENAOMY, OVERSEEN BY THIS RN.
[2025-05-07] MEDS ORDERED: HUMALOG KW100 UNIT/1 SC (14:28)
[2025-05-07 15:06] VITALS: BP 89/60
--- NOTE | 2025-05-07 17:44 | NUR ---
PALLIATIVE CARE NOTE: PT LEFT PRIOR TO BEING SEEN IN HOSPITAL. CALLED SON BARRETT ON PHONE TO DISCUSS CONCERNS. SON BARRETT AGREEABLE TO DISCUSSING CONCERNS. HE REPORTS PT WILL NOT BE ABLE TO MANAGE HIS MEDICATIONS AT HOME. THEY WERE HOPING PT WOULD BE IN A COUPLE MORE DAYS TO FIGURE OUT A PLAN. THEY HAVE APPT WITH [facility] ON 05/11 TO ATTEMPT TO GET SERVICES FOR CAREGIVING/LTC BUT THEY DID THIS A COUPLE YEARS PRIOR AND PT DID NOT QUALIFY FOR ASSISTANCE. PT UNABLE TO PAY FOR CAREGIVERS AT THIS TIME. DISCUSSED CONCERNS OF DECLINE AND MANAGEMENT OF CHRONIC ILLNESSES. PT HAS LOST 50 LBS THIS PAST YEAR. PT NO LONGER TREATING HIS LEUKEMIA. WE DISCUSSED HOSPICE SERVICES AND HE IS AGREEABLE TO CONSULTATION WITH HOSPICE. BARRETT STATES HIS MOM WAS WITH [facility] A FEW YEARS AGO AND DID A "FANTASTIC JOB" AND WOULD APPRECIATE REFERRAL TO THEM. SENT REFERRAL TO [facility]. PT PCP IS WITH DR. HAYES IN [place].
--- NOTE | 2025-05-07 17:50 | NUR ---
CRAPS DEALER NOTE: PT DISCHARGED IN WHEELCHAIR WITH SON TO HOME. PERSONAL BELONGING WITH HIM. BOTH IV'S ARE OUT. PT WAS DRESSED IN HIS CLOTHES. DISCHARGE PAPERWORK GIVEN WITH EDUCATION.
== END 2025-05-07 17:20 | disposition home health service (06) | DRG 637 ==
LOC: ER 11:04 → ICUE 14:12 → MEDS 05-06 18:06 → ENPENDDIS 05-07 13:22 → MEDS 05-07 17:20
PROVIDERS: Emergency Medicine; Family Medicine; ADMIT Internal Medicine
DX: E11.00 Type 2 diabetes mellitus with hyperosmolarity without nonketotic hyperglycemic-hyperosmolar coma (NKHHC) (principal); G93.41 Metabolic encephalopathy; C91.10 Chronic lymphocytic leukemia of B-cell type not having achieved remission; Z68.1 Body mass index [BMI] 19.9 or less, adult; E87.0 Hyperosmolality and hypernatremia; E44.1 Mild protein-calorie malnutrition; F01.50 Vascular dementia, unspecified severity, without behavioral disturbance, psychotic disturbance, mood disturbance, and anxiety; I67.9 Cerebrovascular disease, unspecified; E78.00 Pure hypercholesterolemia, unspecified; E78.5 Hyperlipidemia, unspecified; E87.6 Hypokalemia; E83.39 Other disorders of phosphorus metabolism; Z91.148 Patient's other noncompliance with medication regimen for other reason; Z88.0 Allergy status to penicillin; Z88.1 Allergy status to other antibiotic agents; Z79.82 Long term (current) use of aspirin; Z79.899 Other long term (current) drug therapy; Z79.4 Long term (current) use of insulin; Z79.84 Long term (current) use of oral hypoglycemic drugs; Z86.73 Personal history of transient ischemic attack (TIA), and cerebral infarction without residual deficits; Z23 Encounter for immunization
CPT/HCPCS: 36415; 51702; 70450; 71045; 80048; 80051; 80053; 80069; 80320; 82010; 82803; 82947; 83605; 83690; 83735; 83880; 84484; 85025; 85027; 87040; 93005; 93010; 93306; 96361; 96365; 99285-25; A6590; A9270; J1650; J1815; J2185; J7030; J7060; J7070; J7120